=== PATIENT | female | born 1940 | race Caucasian/White ===

== ENCOUNTER → 2016-08-27 | Outpatient (CLI) | payer OTHER ==
[~2016-08-27] MED LIST: AGG PO; ATV1 PO; CALC1TAB27 PO; CHOL200027 PO; LEVO50TA PO; LISI10TA PO; MELA1TAB5 PO; MEMA1CAP7 PO; PRAV80TA2 PO; PSYL55.43 PO; SERT25TA PO
--- NOTE | 2016-08-27 12:51 | DIAGNOSTIC IMAGING REPORT ---
LUMBAR SPINE WITHOUT CLINICAL HISTORY: 76 years-old Female presenting with LUMBAR SPINE PAIN. TECHNIQUE: Multidetector CT of the lumbar spine was performed without the use of intravenous contrast. IV contrast: None. A dose lowering technique was used consistent with the principles of ALARA (as low as reasonably achievable). COMPARISON: CT from 09/25/2014 and MR from 06/17/2012. CT DOSE: The estimated cumulative dose is 651.99 mGycm. FINDINGS: Human Factors Engineer topogram: Nerve stimulator projects over the right lower quadrant. Kyphoplasty. Lower lumbar hardware. Vertebral body height loss of L3 with postprocedural changes of kyphoplasty. Vertebral body height loss of L5 also noted. Postsurgical changes of interbody spacer at L4-5 and L5-S1 as well as bilateral transpedicular screw and yudith fixation of L5-S1. Laminectomy defects of L4-5 also noted. 5 mm of grade 1 anterolisthesis of L4 on L5. Osseous fusion across the facet joints of L5-S1. Old screw track noted through the pedicles of L4. No apparent hardware complication. Multilevel degenerative changes further detailed below: T12-L1: Anterior osteophytosis. No significant osseous neural foraminal or spinal canal narrowing. L1-2: Anterior osteophytosis. No significant osseous neural foraminal or spinal canal narrowing. L2-3: Mild osteophytosis. No significant osseous neural foraminal or spinal canal narrowing. L3-4: Osteophytosis with vacuum disc phenomenon and facet hypertrophy. Mild right and moderate left osseous neural foraminal narrowing. No osseous spinal canal narrowing. L4-5: No significant osseous neural foraminal or spinal canal narrowing. L5-S1: No significant osseous neural foraminal or spinal canal narrowing. Atherosclerosis of the abdominal aorta. Nerve stimulator noted in the posterior soft tissues overlying the sacrum. No paraspinal fluid collection or inflammatory change. IMPRESSION: 1. Postsurgical changes of the lumbar spine including posterior fusion of L5-S1 and laminectomy defects of L4-5. No significant adjacent degenerative change above the fused L5-S1 level. Osseous fusion across the facets of L5-S1. 2. Multilevel degenerative change as detailed above. Neural foraminal narrowing at L3-4. No osseous spinal canal narrowing status post posterior decompression. 3. Status post kyphoplasty at L3. No new compression deformity. Electronically signed by: Tahir De Souza M.D. 08/27/2016 12:50 PM Dictated Date/Time: 08/27/2016 12:40 PM
== END | disposition home or self-care (01) ==
LOC: C.CTS 11:42
PROVIDERS: ATTEND Physician Assistant Medical
DX: M54.5 Low back pain (principal); M47.816 Spondylosis without myelopathy or radiculopathy, lumbar region

== ENCOUNTER 2020-01-18 14:56 | Inpatient (IN) ==
--- OUTSIDE RECORDS SUMMARY | 2020-01-18 14:59 | External Medical Summary | Continuity of Care Document ---
:1940 Author Name Scottie Khalil Address Unavailable Unavailable , Care Team Providers Name Role Phone Venkat [place]NA [email or web address] Arash HODGE M.D., P. Unavailable [email or web address] Unavailable Unavailable Unavailable Unavailable Unavailable Assessments Assessed Problems:Bilateral leg painLow back pain Problems Memory loss (780.93) (R41.3) Arthritis (716.90) (M19.90) Hypercholesterolemia (272.0) (E78.00) Urinary incontinence (788.30) (R32) Urinary tract infection (599.0) (N39.0) Reflex incontinence (788.39) (N39.498) Vitamin D deficiency (268.9) (E55.9) Obesity (278.00) (E66.9) Hypertension (401.9) (I10) Irritable bowel syndrome (564.1) (K58.9) Hypothyroidism (244.9) (E03.9) Numbness (782.0) (R20.0) Anxiety (300.00) (F41.9) Stroke syndrome Low back pain (724.2) (M54.5) Bilateral leg pain (729.5) (M79.604) Allergies and Adverse Reactions Valium TABS (Allergy) Reaction: Other Medications Potassium TABS Refills: 0 Calcium TABS Refills: 0 Multivitamins TABS; TAKE 1 TABLET DAILY. Start: 06-Oct-2011 Refills: 0 Vitamin D 50 MCG (2000 UT) Oral Capsule; TAKE 1 CAPSULE Emelina y Start: 06-Oct-2011 Refills: 0 Levothyroxine Sodium 50 MCG Oral Tablet; Take 1 tablet daily Start: 06-Oct-2011 Refills: 0 Escitalopram Oxalate 10 MG Oral Tablet; TAKE 1 TABLET DAILY. Start: 06-Oct-2011 Refills: 0 Donepezil HCl - 10 MG Oral Tablet; TAKE 1 TABLET DAILY. Start: 06-Oct-2011 Quantity: 90 Refills: 3 Aggrenox 25-200 MG CP12; TAKE 1 CAPSULE TWICE DAILY. Start: 06-Oct-2011 Quantity: 60 Refills: 5 Pravastatin Sodium 40 MG Oral Tablet; TAKE 1 TABLET DAILY AT BEDTIME. Start: 06-Oct-2011 Refills: 0 Magnesium Oxide 400 MG Oral Capsule Refills: 0 Toviaz 8 MG Oral Tablet Extended Release 24 Hour; Take 1 tablet daily LA NENA Robledo Annamaria Start: 20-May-2012 Quantity: 28 Refills: 0 Procedures History of Knee Surgery Status: Complete d History of Shoulder Surgery Status: Comp leted History of Hysterectomy Status: Complete d History of Back Surgery Status: Complete d History of Cholecystectomy Laparoscopic Status: Completed Immunizations Influenza Comments:Fall 2010 Family History Unknown Family Member Family history of Diabetes Mellitus (V18.0) Status: Active Comments: Family History Family history of Hypertension (V17.49) Status: Active Comments: Family History Social History - Smoking Status Never smoked tobacco Plan of Treatment Planned Observations Planned Goals not documented Results No Known Results Results not documented Encounters Appointment; Priyanka Antoine III, M.D. 27-Aug-2016 13:00 Encounter Diagnosis: Problem not documented
--- OUTSIDE RECORDS SUMMARY | 2020-01-18 14:59 | External Medical Summary | Continuity of Care Document ---
:1940 Author Name Scottie Khalil Address Unavailable Unavailable , Care Team Providers Name Role Phone Venkat SENIOR FIELD ENGINEER Unavailable [email or web address] Arash HODGE M.D. P. Unavailable [email or web address] [place] López KAMINSKI Unavailable Unavailable Unavailable Unavailable Unavailable Assessments Assessed Problems:Bilateral leg painLow back pain Problems Anxiety (300.00) (F41.9) Numbness (782.0) (R20.0) Hypothyroidism (244.9) (E03.9) Irritable bowel syndrome (564.1) (K58.9) Hypertension (401.9) (I10) Obesity (278.00) (E66.9) Vitamin D deficiency (268.9) (E55.9) Reflex incontinence (788.39) (N39.498) Urinary tract infection (599.0) (N39.0) Urinary incontinence (788.30) (R32) Hypercholesterolemia (272.0) (E78.00) Arthritis (716.90) (M19.90) Bilateral leg pain (729.5) (M79.604) Low back pain (724.2) (M54.5) Stroke syndrome Memory loss (780.93) (R41.3) Allergies and Adverse Reactions Valium TABS (Allergy) [...]
[2020-01-18] MEDS ORDERED: SODIUM CHLORIDE 0.9% 500 ML IV ONE (15:31)
[2020-01-18 15:50] LABS: Basophils # (auto) 0.02 K/uL (0-0.2); Basophils % (auto) 0.4 %; Eosinophils % (auto) 1.9 %; Hematocrit (blood only) 40.4 % (37-47); Hemoglobin 13.8 g/dL (12.0-16.0); Immature Granulocytes # (auto) 0.01 K/uL (0.00-0.02); Immature Granulocytes % (auto) 0.2 %; Lymphocytes # (auto) 2.23 K/uL (1.2-3.4); Lymphocytes % (auto) 42.3 %; Mean Corpuscular Hemoglobin 30.1 pg (25-34); Mean Corpuscular Hgb Conc 34.2 g/dL (32-36); Mean Corpuscular Volume 88.2 fL (80-100); Mean Platelet Volume 11.6 fL (7.4-10.4); Monocytes # (auto) 0.47 K/uL (0.11-0.59); Monocytes % (auto) 8.9 %; Neutrophils # (auto) 2.44 K/uL (1.4-6.5); Neutrophils % (auto) 46.3 %; Platelet Count 184 K/uL (130-400); RDW Coefficient of Variation 13.9 % (11.5-14.5); RDW Standard Deviation 44.8 fL (36.4-46.3); Red Blood Count 4.58 M/uL (4.2-5.4); White Blood Count 5.27 K/uL (4.8-10.8)
[2020-01-18 16:47] LABS: Albumin Globulin Ratio 0.8 (0.9-2); Albumin Level 3.6 gm/dl (3.4-5.0); BUN Creatinine Ratio 20.6 (10-20); Bilirubin,Total 0.6 mg/dl (0.2-1); Calcium 10.9 mg/dl (8.5-10.1); Creatinine Clr Calc Pharmacy 32.1 ml/min; Est GFR (Non-African American) 34.6; Globulin 4.3 gm/dl (2.5-4.0); Magnesium 1.7 mg/dl (1.8-2.4); Phosphorus 3.1 mg/dl (2.5-4.9); Potassium 4.4 mmol/L (3.5-5.1); Thyroid Stimulating Hormone 1.39 uIu/ml (0.300-4.500); Total Protein 7.9 gm/dl (6.4-8.2)
[2020-01-18] MEDS ORDERED: MAGNESIUM SULFATE / D5W 1 GM/100 ML BAG IV STA (17:05)
[2020-01-18] MEDS ORDERED: INSULIN ASPART 100 UNITS/ML 3 ML PEN SC STA (18:11)
--- NOTE | 2020-01-18 18:51 | Emergency Department Note ---
Impression & Plan Uncontrolled diabetes mellitus, Hypomagnesemia, Renal insufficiency, Dehydration ED Provider Note NAME: ALICIA JEFFREY AGE: 79 SEX: F ARRIVES VIA: Walk-In INFORMANT: Patient, ED PROVIDER(S): Duarte Monroe MD CHIEF COMPLAINT: Weakness, dizziness elevated blood sugar PLAN: Disposition: Admit MEDICAL DECISION MAKING: The patient is a 79-year-old woman with a past medical history of dementia, NIDDM 2, history of CVA, hypothyroidism, depression who presents emergency department with worsening generalized weakness over the past 2 weeks with blood sugar performed by home nursing today found to have blood sugar in the 500s. The patient was increasingly weak where she was barely able to walk to the car to come to the hospital today per the patient's granddaughter, Kimberly. The patient is a poor historian and denies any complaints at this time however when discussing with the patient's granddaughter she reports she has frequently complained of feeling lightheaded and weak over the past couple of weeks. She was religiously treated for urinary tract infection but her symptoms did not improve. She does live at home by herself with home nursing care but they are not present in the evenings. The patient's granddaughter is concerned that she is so weak and lives by herself and does not have her diabetes controlled. On arrival the patient is fatigued appearing but no acute distress, afebrile stable vital signs. She is pleasantly confused but alert to self, place and situation. She appears clinically dry. She has no focal neuro deficits. WBC, H/H and platelets within normal limits. Chemistry without acidosis. C reatinine 1.4 without recent values for comparison. Sodium is 129 however does correct to normal range, 137. BUN/creatinine> 20 consistent with the patient's clinical dry appearance. Magnesium 1.7 with repletion provided. Electrolytes otherwise unremarkable. LFTs unremarkable. Lipase is not elevated. Initial glucose 570, which improved to 480 following IVF hydration alone. Given initial dose of 12 units of humalog to assess responsiveness. I did discuss the patient's presentation with the patient's granddaughter and she does feel that she is not safe to go home. Both the patient and her granddaughter are agreeable with admission but do agree with placement at [facility] for rehab and improved control of her blood sugars if that is possible tonight. Case management did proceed with arrangements however unfortunately [facility] does not have beds at this time. Thus, reasonable to admit for further management of patient's diabetes and PT OT and placement. Case was discussed with Dr. Hurley, [facility] hospitalist, who will evaluate the patient for admission. Triage Nursing notes reviewed and agree them. Additional history obtained from granddaughterKimberly, Prior medical records reviewed Vital Signs: reviewed and remarkable for no significant abnormalities Differential diagnosis: Infection, dehydration, metabolic abnormality, hypo/hyperglycemia, electrolyte disturbance, anemia, hypoxia, cardiac sources, intracerebral event, toxicologic, neurologic, as well as other pathologies. ER treatment provided: See below. Diagnostics interpreted by me: Cardiac Monitoring: An order for continuous cardiac monitoring was placed and demonstrated NSR, 65 bpm, no ectopy. Laboratory studies: See below Consultation(s): Case was discussed with Dr. Hurley, [facility] hospitalist, who will evaluate the patient for admission. HPI: The patient is a 79-year-old woman with a past medical history of dementia, NIDDM 2, history of CVA, hypothyroidism, depression who presents emergency department with worsening generalized weakness over the past 2 weeks with blood sugar performed by home nursing today found to have blood sugar in the 500s. The patient was increasingly weak where she was barely able to walk to the car to come to the hospital today per the patient's granddaughter, Kimberly. The patient is a poor historian and denies any complaints at this time however when discussing with the patient's granddaughter she reports she has frequently complained of feeling lightheaded and weak over the past couple of weeks. She was religiously treated for urinary tract infection but her symptoms did not improve. She does live at home by herself with home nursing care but they are not present in the evenings. The patient's granddaughter is concerned that she is so weak and lives by herself and does not have her diabetes controlled. ROS: See above HPI for pertinent positives & negatives. A total of 10 systems reviewed and were otherwise negative. PAST MEDICAL HISTORY:See Below PAST SURGICAL HISTORY:See Below FAMILY HISTORY:See Below SOCIAL HISTORY:See Below HOME MEDICATIONS:See Below ALLERGIES:See Below VITALS:See Below PHYSICAL EXAMINATION: GENERAL: Awake, alert, pleasantly confused, fatigued-appearing, in no distress HENT: Normocephalic, atraumatic. Oropharynx with dry mucous membranes and otherwise unremarkable. . EYES: Normal conjunctiva. Sclera non-icteric. EOMI. No nystamgus. PEARRL. NECK: Supple. No nuchal rigidity. FROM. No JVD. RESPIRATORY: Clear to auscultation. CARDIAC: Regular rate, normal rhythm. Extremities warm and well perfused. Pulses equal. ABDOMEN: Soft, non-distended. No tenderness to palpation. No rebound or guarding. No masses. RECTAL: Deferred. MUSCULOSKELETAL: Chest examination reveals no tenderness. The back is symmetrical on inspection without obvious abnormality. There is no CVA tenderness to palpation. No joint edema. LOWER EXTREMITIES: Calves are equal size bilaterally and non-tender. No edema. No discoloration. NEURO: Normal sensorium. No sensory or motor deficits noted. 5/5 strength and SILT x 4 extremities. Intact [id number]. SKIN: No rash or jaundice noted. Duarte Monroe MD Past Med/Surg History Medical History CVA (cerebral vascular accident) Dementia Diabetes Hypertension Hypothyroid Social History Smoking Status: Never smoker Hx Alcohol Use: No Hx Substance Use: No Preferred Language: Romansh Communication Ability: Effective Crutching Contractor Required: No Beliefs That Will Affect Care: None Current Living Situation: Family Other Information That Helps Us Care for You: No Feels Safe at Home: Yes Safety Concerns: Feels Safe At This Time Assistive Devices: Cane, Denture - Upper, Denture - Lower, Glasses and Walker Assistive Devices Comment: patient has BLHA but says doesn't wear them because of wax buildup Allergies Allergies Allergy/AdvReac Type Severity Reaction Status Date / Time diazepam AdvReac Intermediate MUSCLE Verified 01/18/20 16:08 SPASMS Home Meds Home Medications Medication Instructions Recorded Confirmed apixaban [Eliquis] 5 mg PO BID 01/18/20 01/18/20 calcium carbonate-vitamin D3 1 cap PO BID 01/18/20 01/18/20 [Calcium 600 + D(3)] cholecalciferol (vitamin D3) 50 mcg PO DAILY 01/18/20 01/18/20 [Vitamin D3] cyanocobalamin (vitamin B-12) 1,000 mcg IM MO 01/18/20 01/18/20 diphenoxylate-atropine 1 tab PO QID PRN 01/18/20 01/18/20 escitalopram oxalate 10 mg PO DAILY 01/18/20 01/18/20 gabapentin 100 mg PO TID 01/18/20 01/18/20 glimepiride 1 mg PO QAM 01/18/20 01/18/20 levothyroxine 50 mcg PO DAILY 01/18/20 01/18/20 lisinopril 20 mg PO DAILY 01/18/20 01/18/20 memantine 28 mg PO DAILY 01/18/20 01/18/20 metoprolol succinate 25 mg PO QPM 01/18/20 01/18/20 omeprazole 40 mg PO DAILY 01/18/20 01/18/20 pravastatin 80 mg PO DAILY 01/18/20 01/18/20 Results & Data (ED) Vital Signs Vital Signs - 24 hr 01/18/20 15:09 01/18/20 16:51 01/18/20 17:15 Temperature 36.0 C L Temperature Source Oral Pulse Rate 69 Pulse Rate [Left Finger] 72 Pulse Rate from SpO2 Sensor Respiratory Rate 19 18 Respiratory Effort / Characteristics Non-Labored Respiratory Depth Normal Blood Pressure 129/82 Blood Pressure [Left Arm] 155/71 H Blood Pressure Mean 97 Blood Pressure Mean [Left Arm] 99 Pulse Oximetry 97 98 100 Oxygen Delivery Method Room Air Room Air Room Air Sepsis Recent Fever Within 48 Hours No Sepsis New/Unexplained Change in Mental Status No Sepsis Action Taken by Nursing No Action Required 01/18/20 19:00 01/18/20 19:30 01/18/20 20:00 Temperature Temperature Source Pulse Rate 67 66 76 Pulse Rate [Left Finger] Pulse Rate from SpO2 Sensor 74 Respiratory Rate 16 16 12 Respiratory Effort / Characteristics Respiratory Depth Blood Pressure Blood Pressure [Left Arm] Blood Pressure Mean Blood Pressure Mean [Left Arm] Pulse Oximetry Oxygen Delivery Method Sepsis Recent Fever Within 48 Hours Sepsis New/Unexplained Change in Mental Status Sepsis Action Taken by Nursing Laboratory Data Attestation: I reviewed the patient's lab results. Result diagrams: 01/18/20 15:24 01/18/20 15:24 Lab Results 01/18/20 01/18/20 01/18/20 Range/Units 15:24 15:24 15:24 WBC 5.27 (4.8-10.8) K/uL RBC 4.58 (4.2-5.4) M/uL Hgb 13.8 (12.0-16.0) g/dL Hct 40.4 (37-47) % MCV 88.2 (80-100) fL MCH 30.1 (25-34) pg MCHC 34.2 (32-36) g/dL RDW Std Deviation 44.8 (36.4-46.3) fL RDW Coeff of Ivette 13.9 (11.5-14.5) % Plt Count 184 (130-400) K/uL MPV 11.6 H (7.4-10.4) fL Immature Gran % (Auto) 0.2 % Neut % (Auto) 46.3 % Lymph % (Auto) 42.3 % Wilkinson % (Auto) 8.9 % Eos % (Auto) 1.9 % Baso % (Auto) 0.4 % Neut # (Auto) 2.44 (1.4-6.5) K/uL Lymph # (Auto) 2.23 (1.2-3.4) K/uL Wilkinson # (Auto) 0.47 (0.11-0.59) K/uL Eos # (Auto) 0.10 (0-0.5) K/uL Baso # (Auto) 0.02 (0-0.2) K/uL Immature Gran # (Auto) 0.01 (0.00-0.02) K/uL Sodium 129 L (136-145) mmol/L Potassium 4.4 (3.5-5.1) mmol/L Chloride 95 L (98-107) mmol/L Carbon Dioxide 25 (21-32) mmol/L Anion Gap 9.0 (3-11) BUN 29 H (7-18) mg/dl Creatinine 1.42 H (0.6-1.2) mg/dl Est Cr Clr Drug Dosing 32.1 ml/min Est GFR ( Amer) 40.0 Est GFR (Non-Af Amer) 34.6 BUN/Creatinine Ratio 20.6 H (10-20) Glucose 575 H* (70-99) mg/dl POC Glucose (70-99) mg/dl Osmolality 310 H (280-300) mOsm/kg Calcium 10.9 H (8.5-10.1) mg/dl Phosphorus 3.1 (2.5-4.9) mg/dl Magnesium 1.7 L (1.8-2.4) mg/dl Total Bilirubin 0.6 (0.2-1) mg/dl Direct Bilirubin (0-0.2) mg/dl AST 32 (15-37) U/L ALT 48 (12-78) U/L Alkaline Phosphatase 78 (45-117) U/L Troponin I (0-0.045) ng/ml Total Protein 7.9 (6.4-8.2) gm/dl Albumin 3.6 (3.4-5.0) gm/dl Globulin 4.3 H (2.5-4.0) gm/dl Albumin/Globulin Ratio 0.8 L (0.9-2) Lipase 333 (73-393) U/L Beta-Hydroxybutyric Acd (0.2-2.81) mg/dl TSH 1.390 (0.300-4.500) uIu/ml Specimen Hemolysis 01/18/20 01/18/20 01/18/20 Range/Units 15:24 17:11 19:54 WBC (4.8-10.8) K/uL RBC (4.2-5.4) M/uL Hgb (12.0-16.0) g/dL Hct (37-47) % MCV (80-100) fL MCH (25-34) pg MCHC (32-36) g/dL RDW Std Deviation (36.4-46.3) fL RDW Coeff of Ivette (11.5-14.5) % Plt Count (130-400) K/uL MPV (7.4-10.4) fL Immature Gran % (Auto) % Neut % (Auto) % Lymph % (Auto) % Wilkinson % (Auto) % Eos % (Auto) % Baso % (Auto) % Neut # (Auto) (1.4-6.5) K/uL Lymph # (Auto) (1.2-3.4) K/uL Wilkinson # (Auto) (0.11-0.59) K/uL Eos # (Auto) (0-0.5) K/uL Baso # (Auto) (0-0.2) K/uL Immature Gran # (Auto) (0.00-0.02) K/uL Sodium (136-145) mmol/L Potassium (3.5-5.1) mmol/L Chloride (98-107) mmol/L Carbon Dioxide (21-32) mmol/L Anion Gap (3-11) BUN (7-18) mg/dl Creatinine (0.6-1.2) mg/dl Est Cr Clr Drug Dosing ml/min Est GFR ( Amer) Est GFR (Non-Af Amer) BUN/Creatinine Ratio (10-20) Glucose (70-99) mg/dl POC Glucose 484 H* 392 H* (70-99) mg/dl Osmolality (280-300) mOsm/kg Calcium (8.5-10.1) mg/dl Phosphorus (2.5-4.9) mg/dl Magnesium (1.8-2.4) mg/dl Total Bilirubin (0.2-1) mg/dl Direct Bilirubin (0-0.2) mg/dl AST (15-37) U/L ALT (12-78) U/L Alkaline Phosphatase (45-117) U/L Troponin I < 0.015 (0-0.045) ng/ml Total Protein (6.4-8.2) gm/dl Albumin (3.4-5.0) gm/dl Globulin (2.5-4.0) gm/dl Albumin/Globulin Ratio (0.9-2) Lipase (73-393) U/L Beta-Hydroxybutyric Acd (0.2-2.81) mg/dl TSH (0.300-4.500) uIu/ml Specimen Hemolysis Administered Medications Apixaban (Apixaban 5 Mg Tablet) 5 mg PO BID MARY Stop: 02/17/20 22:04 Last Admin: 01/19/20 00:23 Dose: 5 mg Documented by: [id number] Gabapentin (Gabapentin 100 Mg Cap) 100 mg PO TID MARY Stop: 02/17/20 22:04 Last Admin: 01/19/20 00:23 Dose: 100 mg Documented by: [id number] Sodium Chloride (Nss 1000ml) 1,000 mls @ 100 mls/hr IV .Q10H MARY Stop: 02/17/20 20:59 Last Admin: 01/18/20 22:26 Dose: 100 mls/hr Documented by: [id number] Insulin Aspart (Insulin Aspart 100 Units/Ml 3 Ml Pen) 0 units SC ACHS MARY Stop: 02/17/20 22:04 Last Admin: 01/18/20 22:28 Dose: 10 units Documented by: [id number] Cosigned by: [id number] Metoprolol Succinate (Metoprolol Succ 25mg Ext Rel Tab) 25 mg PO QPM MARY Stop: 02/17/20 22:04 Last Admin: 01/19/20 00:24 Dose: 25 mg Documented by: [id number] Multivitamins/Minerals (Calcium 600mg + Vit D 400 Iu Tab) 1 tab PO BID MARY Stop: 02/17/20 22:29 Last Admin: 01/19/20 00:25 Dose: 1 tab Documented by: [id number] Discontinued Medications Sodium Chloride (Nss) 500 mls @ 999 mls/hr IV .Q31M ONE Stop: 01/18/20 16:01 Last Infusion: 01/18/20 17:15 Dose: 0 mls/hr Documented by: [id number] Admin: 01/18/20 15:42 Dose: 999 mls/hr Documented by: [id number] Magnesium Sulfate/Dextrose (Magnesium Sulfate / D5w) 1 gm in 100 mls @ 100 mls /hr IV NOW STA Stop: 01/18/20 18:04 Last Infusion: 01/18/20 22:14 Dose: 0 mls/hr Documented by: [id number] Admin: 01/18/20 17:15 Dose: 100 mls/hr Documented by: [id number] Discharge Plan Visit Data Chief Complaint: Hyperglycemia Stated Complaint: HYPERGLYCEMIA ED Provider: Duarte Monroe Discharge Problem: Uncontrolled diabetes mellitus, Hypomagnesemia, Renal insufficiency, Dehydration Patient Disposition: Admitted As Inpatient
[2020-01-18] MEDS ORDERED: GLUCAGON FOR INJ 1 MG VIAL SQ PRN (22:05)
[2020-01-18] MEDS ORDERED: GLUCOSE 10 TABS/TUBE PO PRN (22:05)
[2020-01-18] MEDS ORDERED: ACETAMINOPHEN 325 MG TAB PO PRN (22:05)
[2020-01-18] MEDS ORDERED: DEXTROSE 50% 50 ML SYRINGE IV PRN (22:05)
[2020-01-18] MEDS ORDERED: ONDANSETRON INJ 2 MG/ML 2 ML VIAL IV PRN (22:05)
[2020-01-18] MEDS ORDERED: CARBOHYDRATES FOR HYPOGLYCEMIA PO PRN (22:05)
[2020-01-18] MEDS ORDERED: GLUCOSE 40% GEL 15 GM TUBE PO PRN (22:05)
--- NOTE | 2020-01-18 22:06 | History & Physical Report ---
Date of Service January 18, 2020 Assessment & Plan (1) Hyperglycemia due to type 2 diabetes mellitus: Glucose was 575 upon admission. After 1 L normal saline and 8 units of regular insulin IV glucose improved to 392. We will place on Accu-Cheks before meals and at bedtime with NovoLog coverage per scale. Continue normal saline at 100 mils per hour Check hemoglobin A1c Hold glimepiride for now. May need PT/OT consult prior to discharge Present on Admission?: Yes (2) Dementia: Dementia/depression continue usual medications Lexapro, gabapentin, memantine. Present on Admission?: Yes (3) Depression: (4) Hypertension: Hold lisinopril. Continue metoprolol succinate Continue apixaban, unclear why she is on it. Present on Admission?: Yes (5) Hypothyroid: Continue levothyroxine 50 mcg daily Present on Admission?: Yes (6) Hyperlipidemia: Continue pravastatin 80 mg daily Present on Admission?: Yes (7) GERD (gastroesophageal reflux disease): Change omeprazole to pantoprazole Present on Admission?: Yes Admission and Anticipated Discharge Date Admission Date: January 18, 2020 History of Present Illness Chief Complaint: Patient is referred into the emergency department tonight after blood sugars performed by home nursing today were found to be in the 500s, and the patient was complaining of general weakness causing decreased ability to walk Primary Care Provider: LA NENA Alvarado The patient is an 79-year-old female with a past medical history including dementia, diabetes mellitus, hypertension, hypothyroidism, CVA, uncontrolled diabetes mellitus, renal insufficiency, lumbar stenosis with neurogenic claudication, depression, and history of previous back surgery. She presents as noted above. Work-up in the emergency department included the following laboratories: Glucose 575, serum osmolality 310, sodium 129, creatinine 1.42, calcium 10.9, magnesium 1.7. Allergies Allergy/AdvReac Type Severity Reaction Status Date / Time diazepam AdvReac Intermediate MUSCLE Verified 01/18/20 16:08 SPASMS Home Medications Medication Instructions Recorded Confirmed Type apixaban [Eliquis] 5 mg PO BID 01/18/20 01/18/20 History calcium carbonate-vitamin D3 1 cap PO BID 01/18/20 01/18/20 History [Calcium 600 + D(3)] cholecalciferol (vitamin D3) 50 mcg PO DAILY 01/18/20 01/18/20 History [Vitamin D3] cyanocobalamin (vitamin B-12) 1,000 mcg IM MO 01/18/20 01/18/20 History diphenoxylate-atropine 1 tab PO QID PRN 01/18/20 01/18/20 History escitalopram oxalate 10 mg PO DAILY 01/18/20 01/18/20 History gabapentin 100 mg PO TID 01/18/20 01/18/20 History glimepiride 1 mg PO QAM 01/18/20 01/18/20 History levothyroxine 50 mcg PO DAILY 01/18/20 01/18/20 History lisinopril 20 mg PO DAILY 01/18/20 01/18/20 History memantine 28 mg PO DAILY 01/18/20 01/18/20 History metoprolol succinate 25 mg PO QPM 01/18/20 01/18/20 History omeprazole 40 mg PO DAILY 01/18/20 01/18/20 History pravastatin 80 mg PO DAILY 01/18/20 01/18/20 History Past Med/Surg History Medical History CVA (cerebral vascular accident) Dementia Diabetes Hypertension Hypothyroid Social History Smoking Status: Never smoker Hx Alcohol Use: No Hx Substance Use: No Preferred Language: Portuguese Communication Ability: Effective Market Risk Manager Required: No Beliefs That Will Affect Care: None Current Living Situation: Family Other Information That Helps Us Care for You: No Feels Safe at Home: Yes Safety Concerns: Feels Safe At This Time Assistive Devices: Cane, Denture - Upper, Denture - Lower, Glasses and Walker Assistive Devices Comment: patient has BLHA but says doesn't wear them because of wax buildup Review of Systems Review of Systems: The patient denies chest pain, palpitations, lower ext remity swelling, sore throat, fevers, chills, sweats, nausea, vomiting, diarrhea , constipation, abdominal pain, pelvic pain, blood in urine or stool, dysuria, urinary frequency or urgency, loss of c onsciousness, rash, abnormal bruising or bleeding, focal weakness, numbness or tingling in arms or legs, generalized arthralgias or myalgias, back or neck pain, or night sweats. The review of systems is otherwise negative other than for that already noted above, and at least 10 systems have been reviewed. Physical Exam Physical Exam: The patient is awake, alert and oriented 3, normocephalic and atraumatic, lying in bed and in no acute distress. HEENT--PERRL, EOMI, mucous membranes and oropharynx dry. Neck--supple. No JVD. No bruits. Thyroid normal, trachea midline, no adenopathy. Heart--normal S1 and S2. No murmurs, rubs or gallops. Lungs--normal breath sounds bilaterally. No respiratory distress, no accessory muscle use. Abdomen--normal bowel sounds and soft. Nontender. Nondistended. Morbidly obese Extremities--no cyanosis or clubbing. No edema. Dermatologic--normal skin turgor, normal color, no abnormal lymph nodes, no rash. Neurologic--cranial nerves II through XII grossly intact. Rheumatologic--normal range of motion. Psychiatric--normal affect. Results & Data Results & Data ([facility]) Vital Signs (Past 12 Hours) Vital Signs Temp Pulse Pulse Resp BP BP Pulse Ox 01/18/20 21:01 67 16 125/84 94 01/18/20 21:00 69 18 95 01/18/20 20:52 66 18 128/91 96 01/18/20 20:00 76 12 01/18/20 19:30 66 16 01/18/20 19:00 67 16 01/18/20 17:15 100 01/18/20 16:51 72 18 155/71 H 98 01/18/20 15:09 96.8 F L 69 19 129/82 97 Laboratory Results Laboratory Results WBC 5.27 K/uL (4.8-10.8) 01/18/20 15:24 RBC 4.58 M/uL (4.2-5.4) 01/18/20 15:24 Hgb 13.8 g/dL (12.0-16.0) 01/18/20 15:24 Hct 40.4 % (37-47) 01/18/20 15:24 MCV 88.2 fL (80-100) 01/18/20 15:24 MCH 30.1 pg (25-34) 01/18/20 15:24 MCHC 34.2 g/dL (32-36) 01/18/20 15:24 RDW Std Deviation 44.8 fL (36.4-46.3) 01/18/20 15: RDW Coeff of Ivette 13.9 % (11.5-14.5) 01/18/20 15:24 Plt Count 184 K/uL (130-400) 01/18/20 15:24 MPV 11.6 fL (7.4-10.4) H 01/18/20 15:24 Immature Gran % (Auto) 0.2 % 01/18/20 15:24 Neut % (Auto) 46.3 % 01/18/20 15:24 Lymph % (Auto) 42.3 % 01/18/20:24 [place] % (Auto) 8.9 % 01/18/20 15:24 Eos % (Auto) 1.9 % 01/18/20 15:24 Baso % (Auto) 0.4 % 01/18/20 15:24 Neut # (Auto) 2.44 K/uL (1.4-6.5) 01/18/20 15:24 Lymph # (Auto) 2.23 K/uL (1.2-3.4) 01/18/20 15:24 [place] # (Auto) 0.47 K/uL (0.11-0.59) 01/18/20 15:24 Eos # (Auto) 0.10 K/uL (0-0.5) 01/18/20 15:24 Baso # (Auto) 0.02 K/uL (0-0.2) 01/18/20 15:24 Immature Gran # (Auto) 0.01 K/uL (0.00-0.02) 01/18/20 15:24 Sodium 129 mmol/L (136-145) L 01/18/20 15:24 Potassium 4.4 mmol/L (3.5-5.1) 01/18/20 15:24 Chloride 95 mmol/L (98-107) L 01/18/20 15:24 Carbon Dioxide 25 mmol/L (21-32) 01/18/20 15:24 Anion Gap 9.0 (3-11) 01/18/20 15:24 BUN 29 mg/dl (7-18) H 01/18/20 15:24 Creatinine 1.42 mg/dl (0.6-1.2) H 01/18/20 15:24 Est Cr Clr Drug Dosing 32.1 ml/min 01/18/20 15:24 Est GFR ( Amer) 40.0 01/18/20 15:24 Est GFR (Non-Af Amer) 34.6 01/18/20 15:24 BUN/Creatinine Ratio 20.6 (10-20) H 01/18/20 15:24 Glucose 575 mg/dl (70-99) H* 01/18/20 15:24 POC Glucose 288 mg/dl (70-99) H 01/19/20 00:18 Osmolality 310 mOsm/kg (280-300) H 01/18/20 15:24 Calcium 10.9 mg/dl (8.5-10.1) H 01/18/20 15:24 Phosphorus 3.1 mg/dl (2.5-4.9) 01/18/20 15:24 Magnesium 1.7 mg/dl (1.8-2.4) L 01/18/20 15:24 Total Bilirubin 0.6 mg/dl (0.2-1) 01/18/20 15:24 Direct Bilirubin mg/dl (0-0.2) 01/18/20 15:24 AST 32 U/L (15-37) 01/18/20 15:24 ALT 48 U/L (12-78) 01/18/20 15:24 Alkaline Phosphatase 78 U/L (45-117) 01/18/20 15:24 Troponin I < 0.015 ng/ml (0-0.045) 01/18/20 15:24 Total Protein 7.9 gm/dl (6.4-8.2) 01/18/20 15:24 Albumin 3.6 gm/dl (3.4-5.0) 01/18/20 15:24 Globulin 4.3 gm/dl (2.5-4.0) H 01/18/20 15:24 Albumin/Globulin Ratio 0.8 (0.9-2) L 01/18/20 15:24 Lipase 333 U/L (73-393) 01/18/20 15:24 Beta-Hydroxybutyric Acd mg/dl (0.2-2.81) 01/18/20 15:24 TSH 1.390 uIu/ml (0.300-4.500) 01/18/20 15:24 Specimen Hemolysis 01/18/20 15:24 SARS-CoV-2 Ag (Rapid) Negative (Negative) 01/18/20 Unknown Code Status & VTE Plan Code Status Full code VTE Prophylaxis Plan VTE Prophylaxis will be ordered: Yes PG Care Time/CCT Total # of Minutes Spent Total Time Spent with Patient: Total time spent is greater than 50% in coordination of care (as documented) at patient's floor/unit and/or counseling patient: Coding Level of Care Code 44469 Initial Inpt Care Lvl 3 Diagnoses Hyperglycemia due to type 2 diabetes mellitus E11.65 Dementia F03.90 Depression F32.9 Hypertension I10 Hypothyroid E03.9 Hyperlipidemia E78.5 GERD (gastroesophageal reflux disease) K21.9
[2020-01-18] MEDS: SODIUM CHLORIDE 0.9% 1000ML 1,000 ML IV SCH (22:26)
[2020-01-18] MEDS: INSULIN ASPART 100 UNITS/ML 3 ML PEN SC SCH (22:28)
[2020-01-19] MEDS: GABAPENTIN 100 MG CAP PO SCH ×4 (00:23→21:41)
[2020-01-19] MEDS: APIXABAN 5 MG TABLET PO SCH ×3 (00:23→21:42)
[2020-01-19] MEDS: METOPROLOL SUCC 25MG EXT REL TAB PO SCH ×2 (00:24→21:41)
[2020-01-19] MEDS: CALCIUM 600MG + VIT D 400 IU TAB PO SCH ×3 (00:25→21:41)
[2020-01-19] MEDS: LEVOTHYROXINE SODIUM 50 MCG TABLET PO SCH (05:45)
[2020-01-19 05:53] LABS: Hematocrit (blood only) 34.7 % (37-47); Hemoglobin 11.9 g/dL (12.0-16.0); Mean Corpuscular Hemoglobin 29.8 pg (25-34); Mean Corpuscular Hgb Conc 34.3 g/dL (32-36); Platelet Count 151 K/uL (130-400); RDW Coefficient of Variation 13.7 % (11.5-14.5); RDW Standard Deviation 43.4 fL (36.4-46.3); Red Blood Count 3.99 M/uL (4.2-5.4); White Blood Count 3.99 K/uL (4.8-10.8)
[2020-01-19 05:56] LABS: Estimated Average Glucose 249 mg/dl; Hemoglobin A1C 10.3 % (4.5-5.6)
[2020-01-19 06:15] LABS: INR 1.1 (0.9-1.1); Partial Thromboplastin Ratio 0.9; Prothrombin Time 11.8 Seconds (9.0-12.0)
[2020-01-19 06:21] LABS: Albumin Level 2.9 gm/dl (3.4-5.0); BUN Creatinine Ratio 23.9 (10-20); Calcium 9.1 mg/dl (8.5-10.1); Creatinine Clr Calc Pharmacy 54.9 ml/min; Est GFR (African American) 75.5; Est GFR (Non-African American) 65.2; Magnesium 1.8 mg/dl (1.8-2.4); Potassium 4.3 mmol/L (3.5-5.1)
[2020-01-19 06:28] LABS: Albumin Globulin Ratio 0.9 (0.9-2); Bilirubin,Total 0.6 mg/dl (0.2-1); Globulin 3.2 gm/dl (2.5-4.0); Total Protein 6.1 gm/dl (6.4-8.2)
[2020-01-19 06:47] LABS: Basophils # (auto) 0.03 K/uL (0-0.2); Basophils % (auto) 0.8 %; Eosinophils # (auto) 0.11 K/uL (0-0.5); Eosinophils % (auto) 2.8 %; Lymphocytes # (auto) 2.22 K/uL (1.2-3.4); Lymphocytes % (auto) 55.6 %; Monocytes # (auto) 0.34 K/uL (0.11-0.59); Monocytes % (auto) 8.5 %; Neutrophils # (auto) 1.29 K/uL (1.4-6.5); Neutrophils % (auto) 32.3 %
[2020-01-19] MEDS: SODIUM CHLORIDE 0.9% 1000ML 1,000 ML IV SCH ×2 (07:46→18:09)
[2020-01-19] MEDS: INSULIN ASPART 100 UNITS/ML 3 ML PEN SC SCH ×4 (07:50→21:46)
[2020-01-19] MEDS: CHOLECALCIFEROL 1,000 UNITS 25 MCG TAB PO SCH (07:53)
[2020-01-19] MEDS: lisinopril 20 MG TAB PO SCH (07:53)
[2020-01-19] MEDS: PANTOprazole 40 MG TAB PO SCH (07:53)
[2020-01-19] MEDS: ESCITALOPRAM OXALATE 10 MG TAB PO SCH (07:53)
[2020-01-19] MEDS: PRAVASTATIN SOD 40 MG TAB PO SCH (07:54)
[2020-01-19] MEDS: MEMANTINE HCL 10 MG TAB PO SCH ×2 (07:54→21:42)
[2020-01-19 12:09] LABS: Appearance Urine Cloudy (Clear); Bacteria Urine Automated 4+ (Negative); Bilirubin Urine Negative (Negative); Blood Urine 1+ (Negative); Color Urine Yellow; Epithelial Cell Urine Auto >30 /lpf (0-5); Glucose Urine UA 3+ (Negative); Ketones Urine Negative (Negative); Leukocyte Esterase Urine 1+ (Negative); Nitrite Urine Positive (Negative); Protein Urine Negative (Negative); RBC Urine Automated 0-4 /hpf (0-4); Specific Gravity Urine 1.024 (1.000-1.030); Urobilinogen Urine Negative (Negative); WBC Urine Automated >30 /hpf (0-5)
[2020-01-19] MEDS: INSULIN DETEMIR FLEXPEN/FLEX TOUCH 100 UNITS/ML 3ML SC SCH ×2 (12:10→21:46)
[2020-01-19 12:20] LABS: Cast Urine Automated 0 /lpf (0-5)
--- NOTE | 2020-01-19 12:43 | Hospitalist Progress Note ---
Date of Service January 19, 2020 Assessment & Plan (1) Hyperglycemia due to type 2 diabetes mellitus: Glucose was 575 upon admission. Basal insulin started, detemir 10 units twice daily. Continue sliding scale coverage. Glimepiride was discontinued on admission. Hemoglobin A1c is 10.3 consistent with poorly controlled type 2 diabetes. (2) Acute kidney injury: Improved with fluid resuscitation. She is incontinent of urine. Saini catheter placed for hygiene and monitoring of urine output. Serial lab studies Present on Admission?: Yes (3) Hyponatremia with increased serum osmolality: Pseudohyponatremia from hyperglycemia. Improving with glucose control. Serial lab studies Present on Admission?: Yes (4) Dementia: Supportive care. (5) Depression: Medication management. Supportive care Present on Admission?: Yes (6) Hypertension: Hold lisinopril. Continue metoprolol succinate Continue apixaban, unclear why she is on it. (7) Hypothyroid: Continue levothyroxine 50 mcg daily (8) Hyperlipidemia: Continue pravastatin 80 mg daily (9) GERD (gastroesophageal reflux disease): Changed omeprazole to pantoprazole Disposition: To be determined. Requested OT and PT assessments Admission and Anticipated Discharge Date Admission Date: January 18, 2020 Subjective The patient is awake and conversant but it is apparent she has dementia. She believes she takes insulin at home but cannot name the insulin or tell me the dose. We will start detemir 10 units twice daily and monitor. Glucose is down to 276 and pseudohyponatremia has resolved. Will taper IV fluids. She is incontinent of urine according to the nursing staff and Saini catheter has been inserted. A1c is 10.3 consistent with uncontrolled type 2 diabetes. Review of Systems Review of Systems: Unobtainable due to cognitive status Physical Exam Physical Exam: General-alert and oriented to name only. No fevers, no chills HEENT-head atraumatic and normocephalic, TMs intact bilaterally, pupils equal and reactive to light, extraocular muscles intact Neck-no lymphadenopathy or thyromegaly, trachea midline Chest-clear to auscultation percussion. No rales wheezing or rhonchi Cardiac-regular rate and rhythm, normal S1 and S2, no murmurs Abdomen-normal bowel sounds, nontender, no hepatosplenomegaly Extremities-no cyanosis, clubbing, or edema Neuro-cranial nerves II through XII intact, no focal deficits Psych-normal affect, normal mood. Baseline dementia Results & Data Results & Data ([facility]) Vital Signs (Past 12 Hours) Vital Signs Temp Pulse Pulse Resp BP Pulse Ox 01/19/20 11:35 36.5 C 57 L 16 106/63 97 01/19/20 10:15 65 01/19/20 07:56 36.6 C 54 L 16 131/81 97 01/19/20 02:45 36.7 C 68 16 129/73 98 Laboratory Results 01/19/20 05:33 01/19/20 05:33 PG Care Time/CCT Total # of Minutes Spent Total Time Spent with Patient: Total time spent is greater than 50% in coordination of care (as documented) at patient's floor/unit and/or counseling patient: Coding Level of Care Code 60284 Subseq Hosp Care Lvl 3 Diagnoses Hyperglycemia due to type 2 diabetes mellitus E11.65 Acute kidney injury N17.9 Hyponatremia with increased serum osmolality E87.0; E87.1 Dementia F03.90 Depression F32.9 Hypertension I10 Hypothyroid E03.9 Hyperlipidemia E78.5 GERD (gastroesophageal reflux disease) K21.9
--- NOTE | 2020-01-19 14:49 | Electrocardiogram Report ---
Test Reason : Blood Pressure : / mmHG Vent. Rate : 068 BPM Atrial Rate : 068 BPM P-R Int : 198 ms QRS Dur : 088 ms QT Int : 422 ms P-R-T Axes : 057 -15 024 degrees QTc Int : 448 ms Normal sinus rhythm with sinus arrhythmia Minimal voltage criteria for LVH, may be normal variant ( R in aVL ) Borderline ECG When compared with ECG of 17-OCT-2014 15:32, No significant change was found Confirmed by Carlos Dougherty ([id number]) on 01/19/2020 2:49:22 PM Referred By: REFERRED SELF Confirmed By:Carlos Dougherty
[2020-01-19] MEDS ORDERED: HALOPERIDOL LACTATE 5 MG/ML 1 ML VIAL IM STA (17:24)
--- NOTE | 2020-01-20 05:32 | Communication Note ---
Date of Service: January 20, 2020 Patient with bacteriuria and pyuria with catheter and new onset of delirium and agitation requiring haldol meets criteria to treat for UTI. WIll start c iprofloxacin 500 mg BID pending culture results
[2020-01-20] MEDS: LEVOTHYROXINE SODIUM 50 MCG TABLET PO SCH (05:50)
[2020-01-20 07:49] LABS: Hematocrit (blood only) 33.2 % (37-47); Hemoglobin 11.5 g/dL (12.0-16.0); Mean Corpuscular Hemoglobin 30.6 pg (25-34); Mean Corpuscular Hgb Conc 34.6 g/dL (32-36); Mean Corpuscular Volume 88.3 fL (80-100); Platelet Count 159 K/uL (130-400); RDW Standard Deviation 45.7 fL (36.4-46.3); Red Blood Count 3.76 M/uL (4.2-5.4); White Blood Count 3.82 K/uL (4.8-10.8)
[2020-01-20 07:58] LABS: INR 1.1 (0.9-1.1); Partial Thromboplastin Ratio 0.8; Partial Thromboplastin Time 22.8 Seconds (21.0-31.0); Prothrombin Time 11.5 Seconds (9.0-12.0)
[2020-01-20] MEDS: CALCIUM 600MG + VIT D 400 IU TAB PO SCH ×2 (08:06→21:00)
[2020-01-20] MEDS: CIPROFLOXACIN 500 MG TAB PO SCH ×2 (08:06→20:59)
[2020-01-20] MEDS: lisinopril 20 MG TAB PO SCH (08:06)
[2020-01-20] MEDS: MEMANTINE HCL 10 MG TAB PO SCH ×2 (08:06→21:00)
[2020-01-20] MEDS: ESCITALOPRAM OXALATE 10 MG TAB PO SCH (08:07)
[2020-01-20] MEDS: PRAVASTATIN SOD 40 MG TAB PO SCH (08:07)
[2020-01-20] MEDS: CHOLECALCIFEROL 1,000 UNITS 25 MCG TAB PO SCH (08:07)
[2020-01-20] MEDS: PANTOprazole 40 MG TAB PO SCH (08:07)
[2020-01-20] MEDS: APIXABAN 5 MG TABLET PO SCH ×2 (08:07→20:58)
[2020-01-20] MEDS: INSULIN ASPART 100 UNITS/ML 3 ML PEN SC SCH ×4 (08:08→21:41)
[2020-01-20] MEDS: INSULIN DETEMIR FLEXPEN/FLEX TOUCH 100 UNITS/ML 3ML SC SCH ×2 (08:08→21:42)
[2020-01-20] MEDS: GABAPENTIN 100 MG CAP PO SCH ×3 (08:08→21:00)
[2020-01-20 08:22] LABS: Albumin Level 2.6 gm/dl (3.4-5.0); BUN Creatinine Ratio 20.8 (10-20); Calcium 9.1 mg/dl (8.5-10.1); Creatinine Clr Calc Pharmacy 68.6 ml/min; Est GFR (African American) 95.5; Est GFR (Non-African American) 82.4; Magnesium 1.7 mg/dl (1.8-2.4); Potassium 4.3 mmol/L (3.5-5.1)
[2020-01-20 08:25] LABS: Albumin Globulin Ratio 0.8 (0.9-2); Bilirubin,Total 0.5 mg/dl (0.2-1); Globulin 3.1 gm/dl (2.5-4.0); Total Protein 5.7 gm/dl (6.4-8.2)
[2020-01-20 08:36] LABS: Basophils # (auto) 0.02 K/uL (0-0.2); Basophils % (auto) 0.5 %; Eosinophils # (auto) 0.14 K/uL (0-0.5); Eosinophils % (auto) 3.7 %; Lymphocytes # (auto) 1.97 K/uL (1.2-3.4); Lymphocytes % (auto) 51.6 %; Monocytes # (auto) 0.29 K/uL (0.11-0.59); Monocytes % (auto) 7.6 %; Neutrophils % (auto) 36.6 %
--- NOTE | 2020-01-20 12:29 | Hospitalist Progress Note ---
Date of Service January 20, 2020 Assessment & Plan (1) Hyperglycemia due to type 2 diabetes mellitus: Glucose was 575 upon admission. Basal insulin started, detemir 10 units twice daily. Continue sliding scale coverage. Glimepiride was discontinued on admission. Hemoglobin A1c is 10.3 consistent with poorly controlled type 2 diabetes. Will discuss options with pt's daughter in terms of pt's ability to manage with insulin at home (2) Acute kidney injury: Improved with fluid resuscitation. She is incontinent of urine. Saini catheter placed for hygiene and monitoring of urine output. Serial lab studies (3) Hyponatremia with increased serum osmolality: Pseudohyponatremia from hyperglycemia. Improving with glucose control. Serial lab studies (4) Dementia: Supportive care. (5) Depression: Medication management. Supportive care (6) Hypertension: Hold lisinopril. Continue metoprolol succinate Continue apixaban, unclear why she is on it. (7) Hypothyroid: Continue levothyroxine 50 mcg daily (8) Hyperlipidemia: Continue pravastatin 80 mg daily (9) GERD (gastroesophageal reflux disease): Changed omeprazole to pantoprazole Disposition: To be determined. Requested OT and PT assessments Admission and Anticipated Discharge Date Admission Date: January 18, 2020 Subjective Pt tolerating PO. Feels better overall. Pt denies fever, SOB, chest pain, abd pain, n/v/c/d, LE pain or swelling. Review of Systems Review of Systems: Pertinent positives and negatives reviewed in HPI--all others negative Physical Exam Constitutional: WD/WN, vitals as above Eyes: normal visual medina by confrontation and + anicteric sclerae Neck: normal visual inspection and trachea midline Respiratory: normal respiratory effort, lungs clear to auscultation Cardiovascular: Rate/Rhythm: regular rate and regular rhythm Gastrointestinal (Abdomen): Inspection/Auscultation: abdomen not distended Percussion/Palpation: abdomen soft; abdomen nontender Musculoskeletal: Head/Neck/Chest: normocephalic and head atraumatic negative for edema, peripheral pulses intact Skin: no rashes, warm and dry Neurologic: awake; not confused Speech / Cognition: normal speech Psychiatric: Orientation: alert, oriented to person and cooperative Speech: normal rate/rhythm/volume of speech Results & Data Results & Data ([facility]) Vital Signs (Past 12 Hours) Vital Signs Temp Pulse Pulse Resp BP Pulse Ox 01/20/20 08:04 36.9 C 63 16 117/71 94 01/20/20 08:00 62 01/20/20 04:22 36.8 C 67 18 120/69 97 PG Care Time/CCT Total # of Minutes Spent Total Time Spent with Patient: Total time spent is greater than 50% in coordination of care (as documented) at patient's floor/unit and/or counseling patient: Coding Level of Care Code 77772 Subseq Hosp Care Lvl 3 Diagnoses Hyperglycemia due to type 2 diabetes mellitus E11.65 Acute kidney injury N17.9 Hyponatremia with increased serum osmolality E87.0; E87.1 Dementia F03.90 Depression F32.9 Hypertension I10 Hypothyroid E03.9 Hyperlipidemia E78.5 GERD (gastroesophageal reflux disease) K21.9
[2020-01-20] MEDS: SODIUM CHLORIDE 0.9% 1000ML 1,000 ML IV SCH (13:40)
[2020-01-20] MEDS: LACTOBACILLUS ACIDOPHILUS 1 GM PACK PO SCH (17:29)
[2020-01-20] MEDS: METOPROLOL SUCC 25MG EXT REL TAB PO SCH (21:00)
[2020-01-21] MEDS: LEVOTHYROXINE SODIUM 50 MCG TABLET PO SCH (05:40)
[2020-01-21 07:07] LABS: Basophils # (auto) 0.01 K/uL (0-0.2); Basophils % (auto) 0.2 %; Eosinophils # (auto) 0.07 K/uL (0-0.5); Eosinophils % (auto) 1.1 %; Hematocrit (blood only) 34.1 % (37-47); Hemoglobin 11.5 g/dL (12.0-16.0); Immature Granulocytes # (auto) 0.01 K/uL (0.00-0.02); Immature Granulocytes % (auto) 0.2 %; Lymphocytes # (auto) 1.91 K/uL (1.2-3.4); Lymphocytes % (auto) 31.1 %; Mean Corpuscular Hemoglobin 29.6 pg (25-34); Mean Corpuscular Hgb Conc 33.7 g/dL (32-36); Mean Corpuscular Volume 87.9 fL (80-100); Mean Platelet Volume 10.9 fL (7.4-10.4); Monocytes # (auto) 0.43 K/uL (0.11-0.59); Neutrophils # (auto) 3.72 K/uL (1.4-6.5); Neutrophils % (auto) 60.4 %; Platelet Count 166 K/uL (130-400); RDW Coefficient of Variation 13.9 % (11.5-14.5); RDW Standard Deviation 44.9 fL (36.4-46.3); Red Blood Count 3.88 M/uL (4.2-5.4); White Blood Count 6.15 K/uL (4.8-10.8)
[2020-01-21 07:21] LABS: INR 1.1 (0.9-1.1); Partial Thromboplastin Ratio 0.9; Partial Thromboplastin Time 24.8 Seconds (21.0-31.0); Prothrombin Time 11.5 Seconds (9.0-12.0)
[2020-01-21] MEDS: GABAPENTIN 100 MG CAP PO SCH ×3 (07:31→19:41)
[2020-01-21] MEDS: CALCIUM 600MG + VIT D 400 IU TAB PO SCH ×2 (07:31→19:41)
[2020-01-21] MEDS: ESCITALOPRAM OXALATE 10 MG TAB PO SCH (07:31)
[2020-01-21] MEDS: PANTOprazole 40 MG TAB PO SCH (07:32)
[2020-01-21] MEDS: CHOLECALCIFEROL 1,000 UNITS 25 MCG TAB PO SCH (07:32)
[2020-01-21 07:36] LABS: Albumin Level 2.7 gm/dl (3.4-5.0); BUN Creatinine Ratio 16.3 (10-20); Calcium 9.4 mg/dl (8.5-10.1); Creatinine Clr Calc Pharmacy 60.7 ml/min; Est GFR (African American) 85.3; Est GFR (Non-African American) 73.6; Magnesium 1.3 mg/dl (1.8-2.4); Potassium 4.3 mmol/L (3.5-5.1)
[2020-01-21 07:38] LABS: Albumin Globulin Ratio 0.8 (0.9-2); Bilirubin,Total 0.7 mg/dl (0.2-1); Globulin 3.2 gm/dl (2.5-4.0); Total Protein 5.9 gm/dl (6.4-8.2)
[2020-01-21] MEDS: PRAVASTATIN SOD 40 MG TAB PO SCH (07:42)
[2020-01-21] MEDS: CIPROFLOXACIN 500 MG TAB PO SCH (07:42)
[2020-01-21] MEDS: lisinopril 20 MG TAB PO SCH (07:42)
[2020-01-21] MEDS: MEMANTINE HCL 10 MG TAB PO SCH ×2 (07:43→19:41)
[2020-01-21] MEDS: LACTOBACILLUS ACIDOPHILUS 1 GM PACK PO SCH ×3 (07:44→17:04)
[2020-01-21] MEDS: INSULIN DETEMIR FLEXPEN/FLEX TOUCH 100 UNITS/ML 3ML SC SCH ×2 (07:45→21:17)
[2020-01-21] MEDS: INSULIN ASPART 100 UNITS/ML 3 ML PEN SC SCH ×4 (07:47→21:17)
[2020-01-21] MEDS: APIXABAN 5 MG TABLET PO SCH ×2 (08:06→19:41)
[2020-01-21] MEDS: SODIUM CHLORIDE 0.9% 1000ML 1,000 ML IV SCH (08:35)
[2020-01-21] MEDS ORDERED: cefTRIAXone SODIUM 1,000 MG in DEXTROSE 5% 50 ML IV SCH (09:15)
[2020-01-21] MEDS: cefTRIAXone SODIUM 2,000 MG in DEXTROSE 5% 50 ML IV SCH (11:30)
--- NOTE | 2020-01-21 13:04 | Hospitalist Progress Note ---
Date of Service January 21, 2020 Assessment & Plan (1) UTI (urinary tract infection): Pt endorses "bee stings" when she would urinate [employer], so I do not think this was a catheter associated UTI Urine cx noted with resistance to ampicillin, cipro, bactrim Pt was started on cipro 01/19 with initial UA screening, will change to ceftriaxone 01/20 Will give initial dosing as IV given cipro resistance, but can change to PO on d/c Given likely POA, may be the reason for hyperglycemia on admission (2) Hyperglycemia due to type 2 diabetes mellitus: Glucose was 575 upon admission. Basal insulin started, detemir 10 units twice daily. Continue sliding scale coverage. Glimepiride was discontinued on admission. Hemoglobin A1c is 10.3 consistent with poorly controlled type 2 diabetes. Granddaughter states they have a pill alarm reminder system and pt does well with this She does not think that insulin will be successful for pt and there is not a great way to determine if pt is consistently taking it or to ensure correct dosing She would prefer to avoid insulin if able, but is agreeable to starting Januvia Add Januvia starting 01/21, d/c levemir with this (3) Acute kidney injury: Improved with fluid resuscitation. She is incontinent of urine. Saini catheter placed for hygiene and monitoring of urine output. Serial lab studies (4) Hyponatremia with increased serum osmolality: Pseudohyponatremia from hyperglycemia. Improving with glucose control. Serial lab studies (5) Dementia: Supportive care. (6) Depression: Medication management. Supportive care (7) Hypertension: Hold lisinopril. Continue metoprolol succinate Continue apixaban, unclear why she is on it. (8) Hypothyroid: Continue levothyroxine 50 mcg daily (9) Hyperlipidemia: Continue pravastatin 80 mg daily (10) GERD (gastroesophageal reflux disease): Changed omeprazole to pantoprazole Disposition: To be determined. Requested OT and PT assessments Admission and Anticipated Discharge Date Admission Date: January 18, 2020 Subjective Pt states she was having "bee stings" when she would urinate [employer]. Tolerating PO without issue. Pt denies fever, SOB, chest pain, abd pain, n/v/c/d, LE pain or swelling. Review of Systems Review of Systems: Pertinent positives and negatives reviewed in HPI--all others negative Physical Exam Constitutional: WD/WN, vitals as above Eyes: normal visual medina by confrontation and + anicteric sclerae Neck: normal visual inspection and trachea midline Respiratory: normal respiratory effort, lungs clear to auscultation Cardiovascular: Rate/Rhythm: regular rate and regular rhythm Gastrointestinal (Abdomen): Inspection/Auscultation: abdomen not distended Percussion/Palpation: abdomen soft; abdomen nontender Musculoskeletal: Head/Neck/Chest: normocephalic and head atraumatic Skin: no rashes, warm and dry Neurologic: awake; not confused Speech / Cognition: normal speech Psychiatric: Orientation: alert, oriented to person and cooperative Speech: normal rate/rhythm/volume of speech Results & Data Results & Data ([facility]) Vital Signs (Past 12 Hours) Vital Signs Temp Pulse Resp BP BP Pulse Ox 01/21/20 11:40 36.8 C 96 H 18 149/81 H 96 01/21/20 08:11 36.9 C 66 16 126/80 94 01/21/20 04:06 37.0 C 70 21 132/79 96 PG Care Time/CCT Total # of Minutes Spent Total Time Spent with Patient: Total time spent is greater than 50% in coordination of care (as documented) at patient's floor/unit and/or counseling patient: Coding Level of Care Code 93273 Subseq Hosp Care Lvl 3 Diagnoses UTI (urinary tract infection) N39.0 Hyperglycemia due to type 2 diabetes mellitus E11.65 Acute kidney injury N17.9 Hyponatremia with increased serum osmolality E87.0; E87.1 Dementia F03.90 Depression F32.9 Hypertension I10 Hypothyroid E03.9 Hyperlipidemia E78.5 GERD (gastroesophageal reflux disease) K21.9
[2020-01-21] MEDS: METOPROLOL SUCC 25MG EXT REL TAB PO SCH (19:41)
[2020-01-22] MEDS: SODIUM CHLORIDE 0.9% 1000ML 1,000 ML IV SCH (04:31)
[2020-01-22] MEDS: LEVOTHYROXINE SODIUM 50 MCG TABLET PO SCH (04:44)
--- NOTE | 2020-01-22 06:20 | Electrocardiogram Report ---
Test Reason : Blood Pressure : / mmHG Vent. Rate : 066 BPM Atrial Rate : 066 BPM P-R Int : 216 ms QRS Dur : 072 ms QT Int : 404 ms P-R-T Axes : 000 004 050 degrees QTc Int : 423 ms Poor data quality, interpretation may be adversely affected Sinus rhythm with 1st degree A-V block Abnormal ECG When compared with ECG of 19-JAN-2020 06:38, Nonspecific T wave abnormality now evident in Anterior leads Confirmed by Maximus Ochoa ([id number]) on 01/22/2020 6:20:25 AM Referred By: REFERRED SELF Confirmed By:Maximus Ochoa
[2020-01-22] MEDS: INSULIN ASPART 100 UNITS/ML 3 ML PEN SC SCH ×4 (08:22→20:43)
[2020-01-22] MEDS: LACTOBACILLUS ACIDOPHILUS 1 GM PACK PO SCH ×3 (08:24→17:12)
[2020-01-22] MEDS: MEMANTINE HCL 10 MG TAB PO SCH ×2 (08:27→20:45)
[2020-01-22] MEDS: PRAVASTATIN SOD 40 MG TAB PO SCH (08:27)
[2020-01-22] MEDS: GABAPENTIN 100 MG CAP PO SCH ×3 (08:27→20:45)
[2020-01-22] MEDS: CALCIUM 600MG + VIT D 400 IU TAB PO SCH ×2 (08:27→20:45)
[2020-01-22] MEDS: ESCITALOPRAM OXALATE 10 MG TAB PO SCH (08:27)
[2020-01-22] MEDS: PANTOprazole 40 MG TAB PO SCH (08:27)
[2020-01-22] MEDS: APIXABAN 5 MG TABLET PO SCH ×2 (08:27→20:45)
[2020-01-22] MEDS: lisinopril 20 MG TAB PO SCH (08:28)
[2020-01-22] MEDS: CHOLECALCIFEROL 1,000 UNITS 25 MCG TAB PO SCH (08:28)
[2020-01-22] MEDS: SITagliptin PHOSPHATE 100 MG TAB PO SCH (09:39)
[2020-01-22] MEDS: cefTRIAXone SODIUM 2,000 MG in DEXTROSE 5% 50 ML IV SCH (09:40)
[2020-01-22] MEDS ORDERED: INSULIN DETEMIR FLEXPEN/FLEX TOUCH 100 UNITS/ML 3ML SC ONE (12:59)
--- NOTE | 2020-01-22 14:48 | Hospitalist Progress Note ---
Date of Service January 22, 2020 Assessment & Plan (1) UTI (urinary tract infection): Pt endorses "bee stings" when she would urinate [employer], so I do not think this was a catheter associated UTI Urine cx noted with resistance to ampicillin, cipro, bactrim Pt was started on cipro 01/19 with initial UA screening, but was changed to ceftriaxone 01/20 -change to po keflex on discharge to compelte 7 day course Given likely POA, may be the reason for hyperglycemia on admission (2) Hyperglycemia due to type 2 diabetes mellitus: Glucose was 575 upon admission. Basal insulin started, detemir 10 units twice daily. Continue sliding scale coverage. Glimepiride was discontinued on admission. Hemoglobin A1c is 10.3 consistent with poorly controlled type 2 diabetes. Was previously on Janumet but had diarrhea from metformin presumably and this was stopped. She was lost to follow up a bit because her PCP was on a leave of absence. Started januvia 100mg daily here and glucose still almost 300 discussed with pt and granddaughter about necessity of insulin and both agreeabe -restart Levemir 10units bid and plan to convert to once daily dosing upon discharge will need home nurse after dc from rehab to teach pt and granddaughter -can restart home glimiperide and januvia also with insulin (3) Acute kidney injury: Improved with fluid resuscitation. She is incontinent of urine. Saini catheter placed for hygiene and monitoring of urine output. Remove Saini today (4) Hyponatremia with increased serum osmolality: Pseudohyponatremia from hyperglycemia. resolved with IVFs and with glucose control. -dc IVFs (5) Dementia: Supportive care. (6) Depression: Medication management. Supportive care (7) Hypertension: lisinopril has since been restarted Continue metoprolol succinate (8) Hypothyroid: Continue levothyroxine 50 mcg daily TSH here normal at 1.39 (9) Hyperlipidemia: Continue pravastatin 80 mg daily (10) GERD (gastroesophageal reflux disease): Changed omeprazole to pantoprazole (11) CVA (cerebral vascular accident): history of such, not sure if thrombotic or embolic? continue ELiquis (12) History of venous thromboembolism: pt thinks she had a blood clot in her abdomen, but unclear history. Granddaughter does not know the history Pt is on Eliquis for this Perhaps PVT? Mesenteric vein thrombus? Is followed by [facility] for pancreatic cysts...will check with them (13) Pancreatic cyst: followed by [facility] with serial scans (14) DVT prophylaxis: Elqiuis Dispo-continued stay, awaiting rehab placement-medically stable but no bed available today Admission and Anticipated Discharge Date Admission Date: January 18, 2020 Subjective Pt feels well. Still feels tired. No urinary symptoms, no abd pain, no N/V. Is eating well, drinking. Reports she has a h/o pancreatic cysts and had a CT abd last week. Tele with NSR rates 60-70s Review of Systems Review of Systems: All systems reviewed & are unremarkable except as noted in HPI & below Physical Exam Constitutional: WD/WN, vitals as above Eyes: + anicteric sclerae Neck: trachea midline, no thyromegaly Respiratory: normal respiratory effort, lungs clear to auscultation Cardiovascular: RRR, no murmur, no edema Chest (Breasts): Chest: normal inspection of chest Gastrointestinal (Abdomen): normal bowel sounds, soft, nontender, no hepatosplenomegaly Musculoskeletal: Extremities: extremities normal to inspection; no cyanosis and no clubbing Skin: no rashes, warm and dry Neurologic: moves all extremities and awake; no focal motor deficits Psychiatric: A+Ox3, euthymic affect Lymphatic: no lymphedema Results & Data Results & Data ([facility]) Vital Signs (Past 12 Hours) Vital Signs Temp Pulse Pulse Resp BP Pulse Ox 01/22/20 11:41 36.7 C 52 L 18 104/67 97 01/22/20 08:00 61 01/22/20 07:54 36.4 C L 62 16 122/70 98 01/22/20 04:18 36.5 C 65 18 144/77 H 96 Laboratory Results 01/22/20 01/22/20 01/21/20 Range/Units 11:22 07:45 20:28 POC Glucose 295 H 228 H 207 H (70-99) mg/dl 01/21/20 Range/Units 16:44 POC Glucose 231 H (70-99) mg/dl PG Care Time/CCT Total # of Minutes Spent Total Time Spent with Patient: Total time spent is greater than 50% in coordination of care (as documented) at patient's floor/unit and/or counseling patient: Coding Level of Care Code 64778 Subseq Hosp Care Lvl 2 Diagnoses UTI (urinary tract infection) N39.0 Hyperglycemia due to type 2 diabetes mellitus E11.65 Acute kidney injury N17.9 Hyponatremia with increased serum osmolality E87.0; E87.1 Dementia F03.90 Depression F32.9 Hypertension I10 Hypothyroid E03.9 Hyperlipidemia E78.5 GERD (gastroesophageal reflux disease) K21.9 CVA (cerebral vascular accident) I63.9 History of venous thromboembolism Z86.718 Pancreatic cyst K86.2 DVT prophylaxis Z29.9
[2020-01-22] MEDS ORDERED: CYANOCOBALAMIN 1000 MCG/ML VIAL IM SCH (20:29)
[2020-01-22] MEDS: INSULIN DETEMIR FLEXPEN/FLEX TOUCH 100 UNITS/ML 3ML SC SCH (20:44)
[2020-01-22] MEDS: METOPROLOL SUCC 25MG EXT REL TAB PO SCH (20:46)
[2020-01-23] MEDS: LEVOTHYROXINE SODIUM 50 MCG TABLET PO SCH (06:04)
[2020-01-23] MEDS: APIXABAN 5 MG TABLET PO SCH (09:20)
[2020-01-23] MEDS: ESCITALOPRAM OXALATE 10 MG TAB PO SCH (09:20)
[2020-01-23] MEDS: SITagliptin PHOSPHATE 100 MG TAB PO SCH (09:20)
[2020-01-23] MEDS: CALCIUM 600MG + VIT D 400 IU TAB PO SCH (09:20)
[2020-01-23] MEDS: LACTOBACILLUS ACIDOPHILUS 1 GM PACK PO SCH ×2 (09:20→12:29)
[2020-01-23] MEDS: CHOLECALCIFEROL 1,000 UNITS 25 MCG TAB PO SCH (09:21)
[2020-01-23] MEDS: PRAVASTATIN SOD 40 MG TAB PO SCH (09:21)
[2020-01-23] MEDS: GABAPENTIN 100 MG CAP PO SCH ×2 (09:21→13:14)
[2020-01-23] MEDS: PANTOprazole 40 MG TAB PO SCH (09:21)
[2020-01-23] MEDS: MEMANTINE HCL 10 MG TAB PO SCH (09:21)
[2020-01-23] MEDS: lisinopril 20 MG TAB PO SCH (09:22)
[2020-01-23] MEDS: INSULIN ASPART 100 UNITS/ML 3 ML PEN SC SCH ×2 (09:25→12:31)
[2020-01-23] MEDS: INSULIN DETEMIR FLEXPEN/FLEX TOUCH 100 UNITS/ML 3ML SC SCH (09:25)
[2020-01-23] MEDS: cefTRIAXone SODIUM 2,000 MG in DEXTROSE 5% 50 ML IV SCH (10:52)
--- NOTE | 2020-01-23 13:17 | Discharge Summary ---
Date of Service January 23, 2020 Admission HPI Per Admitting Provider The patient is an 79-year-old female with a past medical history including dementia, diabetes mellitus, hypertension, hypothyroidism, CVA, uncontrolled diabetes mellitus, renal insufficiency, lumbar stenosis with neurogenic claudication, depression, and history of previous back surgery. She presents as noted above. Work-up in the emergency department included the following laboratories: Glucose 575, serum osmolality 310, sodium 129, creatinine 1.42, calcium 10.9, magnesium 1.7. Principal Diagnosis Hyperglycemia, UTI Discharge Exam Constitutional WD/WN, vitals as above Eyes + anicteric sclerae Neck trachea midline, no thyromegaly Respiratory normal respiratory effort, lungs clear to auscultation Cardiovascular RRR, no murmur, no edema Chest (Breasts) Chest: normal inspection of chest Gastrointestinal (Abdomen) normal bowel sounds, soft, nontender, no hepatosplenomegaly Musculoskeletal Extremities: extremities normal to inspection; no cyanosis and no clubbing Skin no rashes, warm and dry Neurologic moves all extremities and awake; no focal motor deficits Psychiatric A+Ox3, euthymic affect Lymphatic no lymphedema Discharge Data Allergies Allergy/AdvReac Type Severity Reaction Status Date / Time diazepam AdvReac Intermediate MUSCLE Verified 01/18/20 16:08 SPASMS Consultations 01/18/20 19:26 ED Decision to Admit Stat 01/18/20 22:05 Consult Case Management - Discharge Planning Routine Diabetes Follow up Diabetes Follow-up Needed for HgbA1c >9% Hospital Course (1) UTI (urinary tract infection): Pt endorses "bee stings" when she would urinate [employer], so I do not think this was a catheter associated UTI Urine cx noted with resistance to ampicillin, cipro, bactrim Pt was started on cipro 01/19 with initial UA screening, but was changed to ceftriaxone 01/20 -change to po keflex on discharge to complete 7 day course Given likely POA, may be the reason for hyperglycemia on admission (2) Hyperglycemia due to type 2 diabetes mellitus: Glucose was 575 upon admission. Basal insulin started, detemir 10 units twice daily. Continue sliding scale coverage. Glimepiride was discontinued on admission. Hemoglobin A1c is 10.3 consistent with poorly controlled type 2 diabetes. Was previously on Janumet but had diarrhea from metformin presumably and this was stopped. She was lost to follow up a bit because her PCP was on a leave of absence. Started januvia 100mg daily here and glucose improved discussed with pt and granddaughter about necessity of insulin and both agreeable -continue Levemir 10units bid and plan to convert to once daily dosing upon discharge from rehab will need home nurse after dc from rehab to teach pt and granddaughter -can restart home glimiperide and januvia also with insulin (3) Acute kidney injury: Improved with fluid resuscitation. She is incontinent of urine. Saini catheter placed for hygiene and monitoring of urine output. Removed Saini and urinating on her own (4) Hyponatremia with increased serum osmolality: Pseudohyponatremia from hyperglycemia. resolved with IVFs and with glucose control. -dcd IVFs (5) Dementia: Supportive care. (6) Depression: Medication management. Supportive care (7) Hypertension: lisinopril has since been restarted Continue metoprolol succinate (8) Hypothyroid: Continue levothyroxine 50 mcg daily TSH here normal at 1.39 (9) Hyperlipidemia: Continue pravastatin 80 mg daily (10) GERD (gastroesophageal reflux disease): Changed omeprazole to pantoprazole (11) CVA (cerebral vascular accident): history of such, not sure if thrombotic or embolic? continue ELiquis (12) History of venous thromboembolism: pt thinks she had a blood clot in her abdomen, but unclear history. Granddaughter does not know the history Pt is on Eliquis for this Perhaps PVT? Mesenteric vein thrombus? Is followed by [facility] for pancreatic cysts...continue follow up with GI (13) Pancreatic cyst: followed by [facility] with serial scans (14) DVT prophylaxis: Elqiuis Dispo-stable for discharge to rehab Total Time Total Time Spent Total Time Spent (In Minutes): 35 min Total Time Includes: Examination of the Patient, Discharge Planning and Medication Reconciliation Discharge Plan Discharge Items Patient Disposition: Transfer Inpatient Rehab Fac Reason For Visit: HYPERGLYCEMIA IN DM Discharge Diagnosis: Hyperglycemia, UTI Condition on Discharge: Good Activity: As commented below Lifting: Gradually increase as tolerated Bathing: No limitations Exercise/Sports: Gradually increase as tolerated Exercise Comment: with rehab Non-emergency contact: Primary Care Provider Call non-emergency contact if: you have any medication questions and your symptoms worsen Follow-up/Referrals: Yumiko Huynh CRNP [Primary Care Provider] - (Follow up within 1-2 weeks after discharge ) Diet: Carb Consistent or DM2 and Heart Healthy Addtl Attending Provider Instructions: Please finish out antibiotics for the UTI. Continue to adjust insulin as needed and plan should be for once daily Levemir upon discharge given severe hyperglycemia and poorly controlled diabetes. She will need home health and education on how to administer insulin. Pending Studies at Discharge: No Stand-Alone Forms: My [facility] Skilled Items Patient informed of condition?: Yes DNR: No Discharge Level of Care: Acute rehab Communicable Disease: No Discharge Prognosis: Improving Lines: None Urinary Catheter: No Medications and DC Order Prescriptions: New Levemir FlexTouch U-100 Insuln 100 unit/mL (3 mL) Insulin Pen 10 unit SC BID Qty: 15 RF: 0 Januvia 100 mg Tablet 100 mg PO DAILY Qty: 30 RF: 0 cephalexin [Keflex] 500 mg capsule 500 mg PO BID Qty: 10 RF: 0 Continued pravastatin 40 mg tablet 80 mg PO DAILY RF: 0 lisinopril 20 mg tablet 20 mg PO DAILY RF: 0 diphenoxylate-atropine 2.5-0.025 mg Tablet 1 tab PO QID PRN (Reason: Diarrhea) RF: 0 omeprazole 40 mg capsule,delayed release(DR/EC) 40 mg PO DAILY RF: 0 glimepiride 1 mg tablet 1 mg PO QAM RF: 0 levothyroxine 50 mcg tablet 50 mcg PO DAILY RF: 0 cyanocobalamin (vitamin B-12) 1,000 mcg/mL Solution 1,000 mcg IM MO RF: 0 gabapentin 100 mg capsule 100 mg PO TID RF: 0 metoprolol succinate 25 mg tablet extended release 24 hr 25 mg PO QPM RF: 0 escitalopram oxalate 10 mg tablet 10 mg PO DAILY RF: 0 Calcium 600 + D(3) 600 mg calcium- 200 unit Capsule 1 cap PO BID RF: 0 cholecalciferol (vitamin D3) [Vitamin D3] 50 mcg (2,000 unit) Tablet 50 mcg PO DAILY RF: 0 Eliquis 5 mg tablet 5 mg PO BID RF: 0 memantine 28 mg Capsule,Sprinkle,Er 24hr 28 mg PO DAILY RF: 0 Discharge Orders: Discharge Order (Routine); Ordered 01/23/20 Ordered By: Corie Mathis/Other Patient Handouts: High Blood Sugar (Hyperglycemia), Hypoglycemia (Low Blood Sugar), Managing Type 2 Diabetes, 5 Steps for Eating Healthier Admission Data Admit Date/Time: 01/18/20 20:38 Attending Provider: Corie Gates Admit Provider: Hussain Hurley Primary Care Provider: Yumiko Huynh Other Providers: [facility] ; Hussain Hurley Other Interventions: Discharge Summary Assessment (RN) Last Done: 01/23/20 12:49 Coding Level of Care Code D/C Day Management >30 mins Diagnoses UTI (urinary tract infection) N39.0 Hyperglycemia due to type 2 diabetes mellitus E11.65 Acute kidney injury N17.9 Hyponatremia with increased serum osmolality E87.0; E87.1 Dementia F03.90 Depression F32.9 Hypertension I10 Hypothyroid E03.9 Hyperlipidemia E78.5 GERD (gastroesophageal reflux disease) K21.9 CVA (cerebral vascular accident) I63.9 History of venous thromboembolism Z86.718 Pancreatic cyst K86.2 DVT prophylaxis Z29.9
== END 2020-01-23 15:45 | DRG 638 ==
LOC: ED 14:56 → SUATTDRO 20:38 → 2W 20:38